=== PATIENT | female | born 1930 | race Caucasian/White ===

== ENCOUNTER 2016-11-24 17:24 | Inpatient (IN) | payer MEDICARE, OTHER ==
[~2016-11-24] VITALS: Ht 170.2 cm; Wt 74.4 kg
[2016-11-24] MEDS ORDERED: FUROSEMIDE20 MG PO (17:33)
[2016-11-24] MEDS ORDERED: LEVOTHYROXINE100 MC1 IV (17:33)
[2016-11-24] MEDS ORDERED: BAYER CHEWABLE81 MG PO (17:33)
[2016-11-24] MEDS ORDERED: MECLIZINE HCL25 MG PO (17:34)
[2016-11-24] MEDS ORDERED: PLAVIX75 MG PO (17:34)
[2016-11-24] MEDS ORDERED: CATAPRES0.1 MG PO (17:34)
[2016-11-24] MEDS ORDERED: ZOFRAN8 MG PO (17:35)
[2016-11-24] MEDS ORDERED: CARAFATE1 G PO (17:36)
[2016-11-24] MEDS ORDERED: XANAX0.5 MG PO (17:37)
[2016-11-24] MEDS ORDERED: ULTRAM50 MG PO (17:37)
[2016-11-24] MEDS ORDERED: VITAMIN B-1000 MCG/M SQ (17:39)
[2016-11-24 17:57] VITALS: BP 174/81; BMI 25.1
--- NOTE | 2016-11-24 18:04 | NUR ---
TO ROOM 2215 FROM OFFICE.PT C/ OF SHORTNESS OF BREATH WELL BACK AND CHEST PAIN 10/10 SCALE.SHE STATES SHE HAS BEEN HAVING THIS FOR A FEW DAYS.SATS 98% ON ROOM AIR.FALL PRECAUTIONS INITIATED.ASSESSMENT PER ADMIT PACK.
--- NOTE | 2016-11-24 19:00 | NUR ---
PATIENT SUPINE IN BED. HOB 30 DEGREES. PATIENT IS AWAKE AND ALERT WITH MOMENTS OF CONFUSION. RR EVEN AND UNLABORED. O2 @ 2L VIA NC. 0 S/S OF DISTRESS. STATES PAIN IS A 9/10 DUE TO A HEADACHE. IV TO LEFT HAND S/L WITH NO REDNESS OR SWELLING. ATTACHED BOX ALARM TO PATIENT PER FALL PRECAUTIONS. SRX2. BED LOW. CALL LIGHT WITHIN REACH.
[2016-11-24 20:13] LABS: BASOPHILS 0.4 % (0.0-2.0); EOSINOPHILS 7.8 % (0-7); HEMATOCRIT 37.9 % (36.0-48.0); HEMOGLOBIN 11.8 g/dL (12-16); IMMATURE GRANULOCYTES 0.2 % (0-5); MCH 28.8 pg (26.0-34.0); MCHC 31.1 g/dL (31.0-37.0); MCV 92.4 fL (80.0-100.0); MEAN PLATELET VOLUME 10.5 fL (7.4-10.4); MONOCYTES 7.6 % (2-11); RDW 16.9 % (11.5-14.5); WBC 5.3 10x3/uL (4.8-10.8)
[2016-11-24 20:24] LABS: PLATELET COUNT 207 10x3/uL (130-400)
[2016-11-24 20:35] LABS: ALBUMIN 3.5 g/dL (3.4-5.0); ANION GAP 12.5 mmol/L (8-16); CALCIUM 8.9 mg/dL (8.5-10.1); CARBON DIOXIDE 27.1 mmol/L (21.0-32.0); CREATININE - SERUM 0.9 mg/dL (0.6-1.3); POTASSIUM - SERUM 3.6 mmol/L (3.5-5.1)
[2016-11-24 21:00] VITALS: BP 175/92
[2016-11-25 01:00] VITALS: BP 166/90
[2016-11-25 05:40] LABS: BASOPHILS 0.4 % (0.0-2.0); EOSINOPHILS 6.4 % (0-7); HEMATOCRIT 36.3 % (36.0-48.0); HEMOGLOBIN 11.1 g/dL (12-16); LYMPHOCYTES 17.3 % (15-50); MCHC 30.6 g/dL (31.0-37.0); MCV 91.7 fL (80.0-100.0); MEAN PLATELET VOLUME 10.2 fL (7.4-10.4); MONOCYTES 6.9 % (2-11); PLATELET COUNT 212 10x3/uL (130-400); RBC 3.96 10x6/uL (4.00-5.40); RDW 16.5 % (11.5-14.5); WBC 4.7 10x3/uL (4.8-10.8)
[2016-11-25 06:01] LABS: ANION GAP 11.6 mmol/L (8-16); CALCIUM 8.8 mg/dL (8.5-10.1); CARBON DIOXIDE 26.6 mmol/L (21.0-32.0); CREATININE - SERUM 0.9 mg/dL (0.6-1.3); POTASSIUM - SERUM 3.2 mmol/L (3.5-5.1)
--- NOTE | 2016-11-25 07:45 | NUR ---
ASSESSMENT PER FLOW SHEET.PT WITHOUT DISTRESS.BRUISE NOTED TO RIGHT BUTTOCK,PT STATES THE BSC BMPED HER WHEN SHE SIT DOWN.SMALL BRUISES NOTED TO BILATERAL ARMS.FALL PREVENTION IN PLACE,DOOR OPEN TO MONITOR.
[2016-11-25 07:55] VITALS: BP 184/85
[2016-11-25 12:05] VITALS: BP 204/84
--- NOTE | 2016-11-25 12:15 | NUR ---
Patient Name: YOCASTA KAPLAN Admission Status: Elective Accout number: [id number] Admission Date: 11-24-2016 : 1931 Admission Diagnosis: Attending: MADDIE Current LOS: 1 Anticipated DC Date: 11-30-2016 Planned Disposition: Home Primary Insurance: MEDICARE A & B Discharge Planning Comments: CM MET WITH PATIENT REGARDING D/C NEEDS AND PLANS. PATIENT STATED SHE LIVES WITH HER SON (HERBERT) AND HE WILL DRIVE HER HOME AT DISCHARGE. PATIENT HAS 4 STEPS W/ RAILS TO ENTER HOME AND 2 STEPS/RAILS INSIDE. PATIENT STATED SHE IS INDEPENDENT WITH HER CARE AND HAS A WALKER, CANE, WHEELCHAIR, BS COMMODE, AND SHOWER CHAIR AT HOME. PATIENTS SON HELPS WITH HER MEDICATION. PATIENTS PCP IS DR. COLE AND HER PHARMACY IS [facility] [place]. PATIENT IS CURRENT WITH [facility]. CM WILL CONTINUE TO FOLLOW PATIENT WITH D/C NEEDS AND PLANS. PCP DR. COLE [facility] [phone] HERBERT KAPLAN (SON) [phone] French Instructor: Ronel Burch Is the patient Alert and Oriented? Yes 0 * How many steps to enter\exit or inside your home? 6 W/RAILS 0 * PCP DR. COLE 0 * Pharmacy [facility] IN [place] ([facility]) 0 * Preadmission Environment Home with Family 0 * ADLs Independent 0 * Equipment Bedside Commode Cane Shower Chair Walker Wheelchair 0 * List name and contact numbers for known caregivers / representatives who currently or will assist patient after discharge: HERBERT KAPLAN (SON) [phone] 0 * Community resources currently utilized Other 0 * Please name any agencies selected above. [facility] 0 * Additional services required to return to the preadmission environment? Yes 0 * Can the patient safely return to the preadmission environment? Yes 0 * Has this patient been hospitalized within the prior 30 days at any hospital? No 0 Grand Total: 0
--- NOTE | 2016-11-25 13:00 | NUR ---
RE CHECK BP 122/60
[2016-11-25 13:29] VITALS: Ht 170.2 cm; Wt 74.4 kg
--- NOTE | 2016-11-25 14:27 | NUR ---
MEDS ORDERED PER MAR FOR ANXIETY
--- NOTE | 2016-11-25 15:00 | NUR ---
CALL FROM FAMILY,PASSWORD CONFIRMED. UPDATE GIVEN
[2016-11-25 15:38] VITALS: BP 149/63
--- NOTE | 2016-11-25 19:00 | NUR ---
PATIENT SLEEPING ON LEFT SIDE. HOB 20 DEGREES. RR EVEN AND UNLABORED. 0 S/S OF DISTRESS. O2 OFF AT THIS TIME. IV TO LEFT HAND S/L WITH NO REDNESS OR SWELLING. BRAD ALARM ON. SRX2. BED LOW. DOOR OPEN.
--- NOTE | 2016-11-25 19:24 | NUR ---
REMAINS WITHOUT CHANGE,CONT PLAN OF CARE
[2016-11-25 20:00] VITALS: BP 152/70
--- NOTE | 2016-11-25 21:30 | NUR ---
ASSISTED PATIENT TO BSC AND BACK TO BED. ASSESSMENT COMPLETE. IV FLUSHED AND IS PATENT.
[2016-11-26] VITALS: BP 167/74
--- NOTE | 2016-11-26 01:00 | NUR ---
ULTRAM GIVEN FOR HEADACHE. PATIENT CONFUSED AND ASKING WHERE HER SON IS. ATIVAN GIVEN FOR ANXIETY. WILL CONTINUE TO MONITOR.
[2016-11-26 04:00] VITALS: BP 123/72
[2016-11-26 07:07] LABS: BASOPHILS 0.5 % (0.0-2.0); EOSINOPHILS 12.1 % (0-7); HEMATOCRIT 36.2 % (36.0-48.0); HEMOGLOBIN 10.9 g/dL (12-16); LYMPHOCYTES 19.3 % (15-50); MCH 27.7 pg (26.0-34.0); MCHC 30.1 g/dL (31.0-37.0); MCV 92.1 fL (80.0-100.0); MEAN PLATELET VOLUME 10.4 fL (7.4-10.4); MONOCYTES 7.9 % (2-11); NEUTROPHILS 60.2 % (40-80); PLATELET COUNT 207 10x3/uL (130-400); RBC 3.93 10x6/uL (4.00-5.40); RDW 16.5 % (11.5-14.5); WBC 4.3 10x3/uL (4.8-10.8)
[2016-11-26 07:29] LABS: ALBUMIN 3.1 g/dL (3.4-5.0); BILIRUBIN - TOTAL 1.1 mg/dL (0.2-1.3); CALCIUM 8.9 mg/dL (8.5-10.1); CARBON DIOXIDE 27.6 mmol/L (21.0-32.0); POTASSIUM - SERUM 3.6 mmol/L (3.5-5.1); PROTEIN - SERUM 6.6 g/dL (6.4-8.2)
[2016-11-26 07:56] VITALS: BP 174/93
[2016-11-26 12:02] VITALS: BP 140/67
[2016-11-26 15:31] VITALS: BP 140/71
--- NOTE | 2016-11-26 16:23 | EC ---
PATIENT:YOCASTA KAPLAN DATE OF SERVICE: 11/24/16 SEX: F MEDICAL RECORD: [id number] DATE OF : 32 LOCATION:D.[facility] AGE OF PATIENT: 86 ADMISSION DATE: 11/24/16 REFERRING PHYSICIAN: INTERPRETING PHYSICIAN: EMMA HAN MD ECHOCARDIOGRAM REPORT ECHO CHARGES 4 ECHO COMPLETE CLINICAL DIAGNOSIS: CHF/ELEVATED BNP ECHOCARDIOGRAPHIC MEASUREMENTS (adult normal given) AC root (d.<3.7cm) 3.4 LV Septum d (<1.2 cm> 1.4 Valve Excursion 1.8 LV Septum (systole) 1.8 Left Atria (s.<4.0cm> 5.3 LVPW d(<1.2cm) 1.4 RV (d.<2.3cm) 3.8 LVPW (sytole) 2.1 LV diastole(<5.6CM) 5.2 MV E-F(>70mm/sec) LV systole 3.4 LVOT Diameter 1.7 MV exc.(>10mm) Est.ejection fraction (50-75%) Pericardial Effusion N DOPPLER: LVIT A E 144.0 LA RVSP 95.3 LVOT 85.0 AOP1/2T Asc. Ao 121 RVOT 71.0 RA PA 93.0 AV Gradient Peak 5.9 AV Mean 3.3 AV Area 1.3 MV Gradient Peak 9.4 MV Mean 3.0 MV Area COMMENTS: Tax Adjuster: Paula VASQUEZOE Counseling Director:Paula Han TAPE# PACS DATE OF SERVICE: 11/25/2016 Echocardiogram FINDINGS: 1. Left ventricular chamber size is within normal limits. Left ventricular systolic function is moderately depressed. Overall, ejection fraction estimated at 30%. 2. Left atrium is enlarged at 5.3 cm. Right atrium and right ventricular chamber sizes are severely dilated. ECHOCARDIOGRAM REPORT [id number] YOCASTA KAPLAN 3. Valvular structures have normal structure and motion. 4. Doppler interrogation reveals mild to moderate aortic insufficiency, moderate mitral regurgitation, severe tricuspid regurgitation, no other valvular insufficiency or stenosis and pulmonary systolic pressure is markedly elevated estimated at 95 mmHg. 5. No evidence of pericardial effusion or left ventricular thrombus. TRANSINT:[id number] Voice Confirmation ID: [id number] DOCUMENT ID: [id number] EMMA HAN MD at 1623 CC: [id number] DICTATION DATE: 11/25/16 1602 SHIPPING HELPER: 11/26/16 0000 ADM IN [facility] [address] [id number]
--- NOTE | 2016-11-26 19:00 | NUR ---
PATIENT RESTING WITH EYES CLOSED SUPINE IN BED. HOB 30 DEGREES. RR EVEN AND UNLABORED. 0 S/S OF DISTRESS. IV TO LEFT HAND S/L WITH NO REDNESS OR SWELLING. TELEMETRY ON. BRAD MAT ON. SRX2. BED LOW. DOOR OPEN.
[2016-11-26 20:00] VITALS: BP 178/79
--- NOTE | 2016-11-26 20:30 | NUR ---
PATIENT EXTREMELY CONFUSED AND ANXIOUS. ASKING FOR HER SON. SPOKE TO SON ON THE PHONE AND HE ARRIVED. STATES THAT HIS MOTHER IS SUPPOSED TO HAVE HER XANAX TWICE A DAY BUT IT IS ONLY SCHEDULED DAILY. SPOKE WITH KELLI GARCIA AND CHANGED ORDER TO BID. GAVE XANAX AND ULTRAM FOR HEADACHE. ATTEMPTED TO PUT SCD'S ON PATIENT BUT SHE REFUSED.
[2016-11-27] VITALS: BP 151/67
--- NOTE | 2016-11-27 01:20 | NUR ---
PATIENT AWOKE VERY CONFUSED AGAIN. ASKING FOR SON, BUT HE ASKED THAT WE NOT CALL HIM IN THE MIDDLE OF THE NIGHT. GAVE ATIVAN PER ORDER. WILL CONTINUE TO MONITOR.
[2016-11-27 04:00] VITALS: BP 165/72
--- NOTE | 2016-11-27 04:53 | NUR ---
PATIENT ON BSC AND REFUSING TO GET OFF. DEMANDING HER XANAX. I EXPLAINED TO PATIENT MULTIPLE TIMES THAT IT WAS NOT TIME BUT SHE WAS BECOMING IRATE. STATED SHE WOULD GET BACK IN BED IF SHE COULD "HAVE HER PILLS." GAVE XANAX. PATIENT NOW CALM AND BACK IN BED.
[2016-11-27 06:34] LABS: BASOPHILS 0.5 % (0.0-2.0); EOSINOPHILS 12.8 % (0-7); HEMATOCRIT 35.1 % (36.0-48.0); HEMOGLOBIN 10.9 g/dL (12-16); IMMATURE GRANULOCYTES 0.2 % (0-5); MCH 28.5 pg (26.0-34.0); MCHC 31.1 g/dL (31.0-37.0); MCV 91.9 fL (80.0-100.0); MEAN PLATELET VOLUME 10.3 fL (7.4-10.4); MONOCYTES 8.5 % (2-11); PLATELET COUNT 203 10x3/uL (130-400); RBC 3.82 10x6/uL (4.00-5.40); RDW 16.9 % (11.5-14.5); WBC 4.4 10x3/uL (4.8-10.8)
[2016-11-27 06:56] LABS: ANION GAP 9.4 mmol/L (8-16); BILIRUBIN - TOTAL 0.8 mg/dL (0.2-1.3); CARBON DIOXIDE 29.2 mmol/L (21.0-32.0); POTASSIUM - SERUM 3.6 mmol/L (3.5-5.1); PROTEIN - SERUM 6.2 g/dL (6.4-8.2)
--- NOTE | 2016-11-27 07:25 | NUR ---
PATIENT RECEIVED ALERT IN BED. NO SIGNS OF DISTRESS NOTED. REQUESTING XANAX. EXPLAINED TO PATIENT THAT SHE WAS GIVEN XANAX AT 0435 AND THAT IT WAS TOO EARLY. SIDE RAILS UP X2. BED IN LOW POSITIN. CALL LIGHT IN REACH. BRAD ALARM ON.
[2016-11-27 08:09] VITALS: BP 191/88
--- NOTE | 2016-11-27 08:10 | NUR ---
SITTING UP ON SIDE OF BED ALERT. NO SIGNS OF DISTRESS NOTED. SCHEDULED MEDICATION ADMINISTERED. SIDE RAILS UP X2. BED IN LOW POSITION. CALL LIGHT IN REACH.
--- NOTE | 2016-11-27 11:07 | NUR ---
PATIENT ALERT IN BED. NO SIGNS OF DISTRESS NOTED. SIDE RAILS UP X2. BED IN LOW POSITION. CALL LIGHT IN REACH.
[2016-11-27 12:12] VITALS: BP 162/81
--- NOTE | 2016-11-27 13:55 | NUR ---
PATIENT IN RIGHT LATERAL POSITION RESTING WITH EYES CLOSED. RESPIRATIONS EVEN AND UNLABORED. SCDS ON BILATERALLY. SIDE RAILS UP X2. BED IN LOW POSITION. CALL LIGHT IN REACH.
--- NOTE | 2016-11-27 16:30 | NUR ---
PATIENT UP TO BSC ASSIST X1 THEN BACK TO BED. RESPOSITIONED FOR COMFORT. SIDE RAILS UP X2. BED IN LOW POSITION. CALL LIGHT IN REACH. BED ALARM ON.
[2016-11-27 16:45] VITALS: BP 169/81
--- NOTE | 2016-11-27 17:37 | NUR ---
PATIENT IN HIGH KAMINSKI POSITION EATING DINNER. TOLERATING WELL. SCHEDULED MEDICATION ADMINISTERED. SON AT BEDSIDE. SIDE RAILS UP X2. BED IN LOW POSITION. CALL LIGHT IN REACH. BRAD ALARM ON.
--- NOTE | 2016-11-27 19:00 | NUR ---
PATIENT SLEEPING ON RIGHT SIDE. HOB 20 DEGREES. RR EVEN AND UNLABORED. 0 S/S OF DISTRESS. IV TO LEFT HAND S/L WITH NO REDNESS OR SWELLING. TELEMETRY ON. BRAD ALARM ON. SCD'S IN ROOM BUT OFF. SRX2. BED LOW. DOOR OPEN.
[2016-11-27 20:30] VITALS: BP 155/72
[2016-11-28] VITALS (7 sets, daily range): BP systolic 131–186; BP diastolic 55–92
[2016-11-28 05:01] LABS: BASOPHILS 0.4 % (0.0-2.0); EOSINOPHILS 10.9 % (0-7); HEMATOCRIT 38.7 % (36.0-48.0); HEMOGLOBIN 11.9 g/dL (12-16); IMMATURE GRANULOCYTES 0.2 % (0-5); LYMPHOCYTES 16.2 % (15-50); MCH 28.5 pg (26.0-34.0); MCHC 30.7 g/dL (31.0-37.0); MCV 92.6 fL (80.0-100.0); MEAN PLATELET VOLUME 10.3 fL (7.4-10.4); MONOCYTES 9.9 % (2-11); NEUTROPHILS 62.4 % (40-80); PLATELET COUNT 209 10x3/uL (130-400); RBC 4.18 10x6/uL (4.00-5.40); WBC 5.1 10x3/uL (4.8-10.8)
[2016-11-28 05:31] LABS: ALBUMIN 3.2 g/dL (3.4-5.0); ANION GAP 10.8 mmol/L (8-16); BILIRUBIN - TOTAL 0.68 mg/dL (0.2-1.3); CALCIUM 9.6 mg/dL (8.5-10.1); CARBON DIOXIDE 27.2 mmol/L (21.0-32.0); PROTEIN - SERUM 7.1 g/dL (6.4-8.2)
--- NOTE | 2016-11-28 07:10 | NUR ---
PATIENT RECEIVED IN LOW KAMINSKI POSITION RESTING QUIETLY. RESPIRATIONS EVEN AND UNLABORED. SIDE RAILS UP X2. BED IN LOW POSITION. CALL LIGHT IN REACH. BRAD ALARM ON.
--- NOTE | 2016-11-28 08:38 | NUR ---
PATIENT REPOSITIONED IN BED. WELL TOLERATED. SCHEDULED MEDICATION ADMINISTERED. SIDE RAILS UP X2. BED IN LOW POSITION. CALL LIGHT IN REACH. BED ALARM ON.
--- NOTE | 2016-11-28 11:27 | NUR ---
PATIENT SITTING UP IN CHAIR AT BEDSIDE. NO SIGNS OF DISTRESS NOTED. SCHEDULED MEDICATION ADMINISTERED. BRAD ALARM ON. CALL LIGHT IN REACH.
--- NOTE | 2016-11-28 13:30 | NUR ---
PATIENT IN LOW KAMINSKI POSITION RESTING WITH EYES CLOSED. RESPIRATIONS EVEN AND UNLABORE. SIDE RAILS UP X2. BED IN LOW POSITION. CALL LIGHT IN REACH.
--- NOTE | 2016-11-28 15:00 | NUR ---
Rehab Note- Prescreen Order received. Attempted to interview the patient- very drowsy, lethargic, kept falling asleep while attempting to interview patient. Spoke to her concerning her sleepiness, state "don't know why I'M so sleepy, slept well last nite". When discussing possibility for IRF stay, stated we'll have to speak to my son about that, he makes those decisions. Attempted to call son Jerad Miller @ [phone] left voicemail for return call, & [phone] & unable to leave voicemail on this phone. Son, Jerad, returned call while I went back to speak with the patient. Explained IRF order & stay, stated "don't know what my mom told you but she lives @ [facility] & has for about a week & has some Dementia". Informed son that patient stated that she lived @ home with him & has a caregiver lady that helps her around the house. He stated that wasn't true. Asked him about her being so sleepy & lethargic, stated that had kind of become her norm because she's wanting to stay up all night & sleep all day. Stated that he thought from speaking with the nurse yesterday that she would be in the hospital at least a few more days. Noted that patient has been uncooperative with care per nursing staff. The patient is unable to tolerate & cooperate with the required 3hrs of therapy for IRF stay. Thank you for this referral! Myra Hunter RN Clinical Liaison, [facility]
--- NOTE | 2016-11-28 17:00 | NUR ---
ASSISTED UP TO RESTROOM THEN TO CHAIR AT BEDSIDE ASSIST X1. DENIES NEEDS. BRAD ALARM ON. CALL LIGHT IN REACH.
--- NOTE | 2016-11-28 19:24 | NUR ---
PT RECEIVED RESTING IN BED. NO SIGNS OF DISTRESS. NO COMPLAINTS OF PAIN. PT DENIES NEEDS AT THIS TIME. BED LOW, CALL LIGHT IN REACH, ALARM ON.
--- NOTE | 2016-11-28 21:10 | NUR ---
PT SLEEPING. NO SIGNS OF DISTRESS. RESPIRATIONS EVEN AND UNLABORED. BED LOW, CALL LIGHT IN REACH, SIDE RAIL UPX2, BRAD ON.
--- NOTE | 2016-11-28 22:36 | NUR ---
ASSISTED PT TO BATHROOM, MINIMAL ASSIST. PT USING WALKER. DENIES ANY OTHER NEEDS AT THIS TIME. WILL MONITOR.
--- NOTE | 2016-11-28 23:21 | NUR ---
PT SLEEPING. NO SIGNS OF DISTRESS. RBAD ON.
[2016-11-29] VITALS: BP 158/77
--- NOTE | 2016-11-29 01:59 | NUR ---
PT SLEEPING. NO SIGNS OF DISTRESS. BRAD ALARM ON.
--- NOTE | 2016-11-29 02:57 | NUR ---
RECIEVED PT LYING IN BED RESTING WITH EYES CLOSED, RESP WITH EASE, NO DISTRESS NOTED, SR'S UP X2, CL IN REACH, ALARM ON, WILL MONITOR
[2016-11-29 04:00] VITALS: BP 162/75
[2016-11-29 05:09] LABS: BASOPHILS 0.2 % (0.0-2.0); EOSINOPHILS 9.8 % (0-7); HEMATOCRIT 39.5 % (36.0-48.0); HEMOGLOBIN 12.2 g/dL (12-16); MCH 28.4 pg (26.0-34.0); MCHC 30.9 g/dL (31.0-37.0); MCV 91.9 fL (80.0-100.0); MEAN PLATELET VOLUME 10.4 fL (7.4-10.4); MONOCYTES 9.3 % (2-11); NEUTROPHILS 66.7 % (40-80); PLATELET COUNT 224 10x3/uL (130-400); RDW 17.1 % (11.5-14.5); WBC 4.7 10x3/uL (4.8-10.8)
--- NOTE | 2016-11-29 05:19 | NUR ---
MEDS GIVEN PER MAR, FREDDIE WELL, CL IN REACH, ALARM ON
[2016-11-29 05:29] LABS: ALBUMIN 3.3 g/dL (3.4-5.0); ANION GAP 12.3 mmol/L (8-16); BILIRUBIN - TOTAL 0.8 mg/dL (0.2-1.3); CALCIUM 9.8 mg/dL (8.5-10.1); CARBON DIOXIDE 27.2 mmol/L (21.0-32.0); CREATININE - SERUM 0.9 mg/dL (0.6-1.3); POTASSIUM - SERUM 3.5 mmol/L (3.5-5.1); PROTEIN - SERUM 7.2 g/dL (6.4-8.2)
--- NOTE | 2016-11-29 07:05 | NUR ---
PATIENT RECEIVED ALERT IN LOW KAMINSKI POSITION. RESPIRATIONS EVEN AND UNLABORED. SIDE RAILS UP X2. BED IN LOW POSITION. CALL LIGHT IN REACH. BRAD ALARM ON.
[2016-11-29 08:13] VITALS: BP 175/90
--- NOTE | 2016-11-29 08:13 | NUR ---
PATIENT ALERT IN BED. REPOSITIONED FOR COMFORT. BREAKFAST TRAY SET UP. SCHEDULED MEDICATION ADMINISTERED. SIDE RAILS UP X2. BED IN LOW POSITION. CALL LIGHT IN REACH. BED ALARM ON.
--- NOTE | 2016-11-29 11:40 | NUR ---
PATIENT ASSIST BACK TO BED FROM BSC. POSITIONED SELF FOR COMFORT. REFUSES SCDS AT THIS TIME. SIDE RAILS UP X2. BED IN LOW POSITION. CALL LIGHT IN REACH. BED ALARM ON
[2016-11-29 12:46] VITALS: BP 145/62
--- NOTE | 2016-11-29 14:45 | NUR ---
PATIENT SITTING UP IN CHAIR AT BEDSIDE. NO SIGNS OF DISTRESS NOTED. CALL LIGHT IN REACH. BRAD ALARM ON.
[2016-11-29 16:42] VITALS: BP 160/66
--- NOTE | 2016-11-29 17:15 | NUR ---
PATIENT SITTING UP IN CHAIR AT BEDSIDE EATING DINNER. BRAD ALARM ON. CALL LIGHT IN REACH.
--- NOTE | 2016-11-29 19:50 | NUR ---
PATIENT ATTEMPTING TO TRANSFER SELF TO BSC. MINIMAL ASSIST PROVIDED AND ASSISTED BACK TO BED. NO SIGNS OF DISTRESS NOTED AT THIS TIME. DENIES ANY NEEDS OR PAIN. BED LOW. CALL LIGHT IN REACH. BED ALARM ON.
[2016-11-29 21:00] VITALS: BP 128/67
[2016-11-30 01:00] VITALS: BP 161/69
--- NOTE | 2016-11-30 02:30 | NUR ---
PT IN BED REQUESTING WATER. SCD'S OFF AT THIS TIME. IV TO LEFT HAND PATENT AND SALINE LOC. SIDE RAILS ARE UP X 2. BED IS LOW. BRAD MAT IS ON. CALL LIGHT IS IN REACH.
[2016-11-30 05:00] VITALS: BP 172/72
[2016-11-30 05:04] LABS: BASOPHILS 0.4 % (0.0-2.0); EOSINOPHILS 8.5 % (0-7); HEMATOCRIT 38.1 % (36.0-48.0); HEMOGLOBIN 11.6 g/dL (12-16); IMMATURE GRANULOCYTES 0.2 % (0-5); LYMPHOCYTES 18.3 % (15-50); MCHC 30.4 g/dL (31.0-37.0); MCV 91.8 fL (80.0-100.0); MEAN PLATELET VOLUME 10.5 fL (7.4-10.4); MONOCYTES 7.5 % (2-11); NEUTROPHILS 65.1 % (40-80); PLATELET COUNT 220 10x3/uL (130-400); RBC 4.15 10x6/uL (4.00-5.40); RDW 17.1 % (11.5-14.5); WBC 5.1 10x3/uL (4.8-10.8)
[2016-11-30 05:31] LABS: ALBUMIN 3.2 g/dL (3.4-5.0); ANION GAP 12.4 mmol/L (8-16); BILIRUBIN - TOTAL 0.78 mg/dL (0.2-1.3); CALCIUM 9.6 mg/dL (8.5-10.1); CARBON DIOXIDE 27.3 mmol/L (21.0-32.0); CREATININE - SERUM 1.1 mg/dL (0.6-1.3); POTASSIUM - SERUM 3.7 mmol/L (3.5-5.1); PROTEIN - SERUM 6.6 g/dL (6.4-8.2)
--- NOTE | 2016-11-30 07:52 | NUR ---
SCHEDULED MEDICATIONS ADMINISTERED AT THIS TIME WELL PRN XANAX AND ULTRAM PER ORDER. ASSESSMENT PERFORMED PER FLOWSHEET. IV TO LEFT HAND PATENT. PT REMAINS CONSISTENT WITH INTERMITTENT CONFUSION TO PLACT, TIME AND SITUATION. BRAD MAT ALARM ON AND IN USE. SCD'S OFF PER PT. SRX2, BED IN LOWEST POSITION AND LOCKED. DOOR OPEN AND CALL LIGHT IN REACH. WILL CONTINUE WITH PLAN OF CARE.
[2016-11-30 08:15] VITALS: BP 176/78
--- NOTE | 2016-11-30 10:15 | NUR ---
EATING ICE CREAM AT THIS TIME. PT DENIES NEEDS. SELF POSITION FOR COMFORT. CALL LIGHT IN REACH AND BRAD MAT ALARM ON AND IN USE FOR FALL PRECAUTION. DOOR OPEN. WILL CONTINUE WITH PLAN OF CARE.
[2016-11-30 12:22] VITALS: BP 143/66
--- NOTE | 2016-11-30 13:30 | NUR ---
SLEEPING AT THIS TIME. RESPIRATIONS EVEN AND NON LABORED. CALL LIGHT IN REACH AND DOOR OPEN. WILL CONTINUE WITH PLAN OF CARE.
--- NOTE | 2016-11-30 16:03 | NUR ---
CM REASSESSMENT NOTE: PATIENT WAS DENIED IP REHAB AND SON CHOSE [facility] AND REFERRAL WAS SENT.
[2016-11-30 16:45] VITALS: BP 152/76
--- NOTE | 2016-11-30 19:20 | NUR ---
RECIVED SHIFT REPORT. PT IS LYING IN BED. PT IS ALERT AND ORIENTED BUT IS CONFUSED TO SITUATION. IV IS PATENT AND SALINE LOC AT THIS TIME. SCD'S OFF AT THIS TIME. PT DENIES ANY PAIN AT THIS TIME. PT IS AMBULATORY WITH ASSISTANCE BUT IS ABLE TO TURN SELF IN BED FOR COMFORT AND SKIN CARE. NO NEEDS ARE VERBALIZED AT THIS TIME. WILL CONTINUE TO MONITOR. SIDE RAILS ARE UP X 2. BED IS IN LOWEST POSITION. BRAD MAT IS ON FOR SAFETY. CALL LIGHT IS WITHIN REACH.
[2016-11-30 20:58] VITALS: BP 121/61
--- NOTE | 2016-11-30 21:15 | NUR ---
SHIFT ASSESSMENT COMPLETED. PT STATUS REMAINS UNCHANGED FROM PREVIOUS. PT ASSISTED TO BEDSIDE COMMODE AND BACK TO BED WITH MINIMAL ASSIST. NO FURTHER NEEDS AT THIS TIME. WILL MONITOR. SIDE RAILS X 2. BED LOW. BRAD ON. CALL LIGHT IN REACH.
--- NOTE | 2016-12-01 01:08 | NUR ---
PT C/O BEING NERVOUS AND REQUESTING PRN XANAX. ADMINISTERED PER ORDER. DENIES FURTHER NEEDS. WILL MONITOR. SIDE RAILS X 2. BED LOW. POSSEY ON. CALL LIGHT IN REACH.
[2016-12-01 01:48] VITALS: BP 159/60
[2016-12-01 04:41] VITALS: BP 135/64
--- NOTE | 2016-12-01 08:05 | NUR ---
AWAKE AND AELRT.ORIETNED X3. NO C/O AT THIS TIME. LUNGS ARE CLEAR BILATERALLY, REPORTS OCCASSIONAL DRY COUGH. SKIN IS INTACT WITHOUT REDNESS. SL TO LEFT HAND PATENT WTIHOUT REDNESS AT INSERTION SITE. DANE NEEDS.
--- NOTE | 2016-12-01 08:25 | NUR ---
REQUESTED AND GIVEN ONE ULTRAM PO FOR C/O HEADACHE LEVEL 10. WILL MONITOR.
[2016-12-01 09:10] VITALS: BP 174/85
--- NOTE | 2016-12-01 09:30 | NUR ---
REPORTS HEADACHE GONE AT THIS TIME. ATE ALMOST ALL OF BREAKFAST.
[2016-12-01 11:03] LABS: BASOPHILS 0.5 % (0.0-2.0); EOSINOPHILS 7.5 % (0-7); HEMATOCRIT 37.8 % (36.0-48.0); HEMOGLOBIN 11.7 g/dL (12-16); IMMATURE GRANULOCYTES 0.2 % (0-5); LYMPHOCYTES 14.2 % (15-50); MCH 28.3 pg (26.0-34.0); MCV 91.3 fL (80.0-100.0); MEAN PLATELET VOLUME 10.6 fL (7.4-10.4); MONOCYTES 7.1 % (2-11); NEUTROPHILS 70.5 % (40-80); PLATELET COUNT 222 10x3/uL (130-400); RBC 4.14 10x6/uL (4.00-5.40); RDW 17.2 % (11.5-14.5); WBC 5.5 10x3/uL (4.8-10.8)
[2016-12-01 11:22] LABS: ALBUMIN 3.2 g/dL (3.4-5.0); ANION GAP 11.4 mmol/L (8-16); BILIRUBIN - TOTAL 0.8 mg/dL (0.2-1.3); CALCIUM 9.4 mg/dL (8.5-10.1); CARBON DIOXIDE 27.2 mmol/L (21.0-32.0); POTASSIUM - SERUM 3.6 mmol/L (3.5-5.1)
[2016-12-01] MEDS ORDERED: ZOCOR20 MG PO (11:38)
[2016-12-01] MEDS ORDERED: COREG12.5 MG PO (11:38)
[2016-12-01] MEDS ORDERED: VESICARE5 MG PO (11:40)
--- NOTE | 2016-12-01 12:36 | NUR ---
CM REASSESSMENT NOTE: PATIENT WILL DISCHARGE BY FACILITY VAN TODAY TO A SKILLED BED AT [facility].
[2016-12-01 13:06] VITALS: BP 138/63
--- NOTE | 2016-12-01 17:00 | NUR ---
REPORT CALLED TO JOHANA HARRIS LPN AT [facility]. ALL QUESSTIONS ANSWERED. NEEDED PRESCRIPITIONS SENT WITH PATIENT. SL TO LEFT HAND D/C WITH CATHETER INTACT.
--- NOTE | 2016-12-01 18:00 | NUR ---
SITTING UP ON SIDE OF BED EATING SUPPER. ASSISTED TO DRESS PER STAFF. VOIDED 300cc CLEAR YELLOW URINE. SKIN CARE PER SELF. DISCHARGED TO [facility] VIA THEIR TRANSPORTATION.
== END 2016-12-01 18:10 | DRG 293 ==
LOC: D.MS 17:24
PROVIDERS: Family Medicine; ADMIT Family Medicine Adult Medicine
DX: I11.0 Hypertensive heart disease with heart failure (principal); I50.9 Heart failure, unspecified; I48.91 Unspecified atrial fibrillation; E78.5 Hyperlipidemia, unspecified; Z95.0 Presence of cardiac pacemaker

== ENCOUNTER → 2016-12-04 14:39 | Outpatient (CLI) | payer MEDICARE, OTHER ==
[2016-11-25 13:29] VITALS: BMI 25.0
[~2016-12-04 14:39] MED LIST: BAYER CHEWABLE81 MG PO; CARAFATE1 G PO; CATAPRES0.1 MG PO; COREG12.5 MG PO; FUROSEMIDE20 MG PO; LEVOTHYROXINE100 MC1 IV; MECLIZINE HCL25 MG PO; PLAVIX75 MG PO; ULTRAM50 MG PO; VESICARE5 MG PO; VITAMIN B-1000 MCG/M SQ; XANAX0.5 MG PO; ZOCOR20 MG PO; ZOFRAN8 MG PO
== END | disposition home or self-care (01) ==
LOC: D.RAD 14:39
DX: R05 Cough (principal)

== ENCOUNTER 2017-04-15 10:21 | Observation (INO) | payer MEDICARE, OTHER ==
[~2017-04-15] VITALS: Ht 170.2 cm; Wt 70.3 kg
--- NOTE | ~2017-04-15 | OP ---
PATIENT NAME: YOCASTA KAPLAN MEDICAL RECORD: [id number] :31 LOCATION:D.[facility] D.2118 ADMISSION DATE:04/15/17 SURGEON: CHERYLE GALLEGOS M.D. DATE OF OPERATION: 04/16/2017 Catheterization Report REFERRING PHYSICIAN: Kush Cotto MD. PROCEDURES PERFORMED: 1. Selective coronary angiography. 2. Left heart catheterization with ventriculogram. INDICATION: An 86-year-old woman, who presents with unstable angina. EQUIPMENT USED: A 5-Algerian JL4, Rudy right, pigtail catheter. TECHNIQUE: A 5-Algerian sheath was inserted in retrograde fashion in the right common femoral artery. Next, selective coronary angiography was performed in standard 5-Algerian JL4 and Rudy right. Left heart catheterization was performed using pigtail catheter. CORONARY ANATOMY: 1. Left main: Left main trunk is moderate in caliber. It gives rise to the LAD and circumflex. There is no obstruction. 2. LAD: This is a moderate caliber vessel extending to the apex. It is a smooth-walled vessel and angiographically normal. 3. Circumflex: This vessel is moderate in caliber. It provides the lateral branch in mid segment. The circumflex and lateral branch are smooth-walled and angiographically normal. 4. Right coronary: This vessel is moderate in caliber and dominant. It provides the PDA and distal segment. This vessel is smooth-walled and angiographically normal. 5. Left ventricle: Left ventricle is mildly dilated. There is global hypokinesis noted. There is moderate LV dysfunction noted. Estimated ejection fraction in the order of 35% to 40%. IMPRESSION: 1. Normal coronary arteries. 2. Moderate left ventricular dysfunction with ejection fraction of 35% to 40% consistent cardiomyopathy. PLAN: At this point, we will continue with medical management. TRANSINT:[id number] Voice Confirmation ID: [id number] DOCUMENT ID: [id number] CHERYLE GALLEGOS M.D. CC: [id number] DICTATION DATE: 04/16/17 1433 DENTAL SERVICE TECHNICIAN: 04/17/17 0225 DIS IN 04/16/17 [facility] [address] [id number]
--- NOTE | ~2017-04-15 | HEMODYNAMI ---
PATIENT:YOCASTA KAPLAN MEDICAL RECORD: [id number] : 32 [facility] [id number] ADMISSION DATE: 04/15/17 Generatedon:04/16/201714:34 Patient name: YOCASTA KAPLAN Patient #: [id number] SSN: : Date of study: 04/16/2017 Page: Of Hemodynamic Procedure Report Patient Data Patient Demographics Procedure consent was obtained First Name: YOCASTA Gender: Female Last Name: KAPLAN : 1930 Patient #: [id number] Age: 86 year(s) Race: Unknown Additional ID: [id number] Contact details Address: [address] [place] [address] State: [place] City: [place] Zip code: [address] Past Medical History Allergies Allergen Reaction Date Comments Reported Other allergy 04/16/2017 GABAPENTIN,PCN, NITROFURANTOIN, METAXALONE, CODEINE, CILOSTAZOL, WALTER INHIBITORS Admission Admission Data Admission Date: 04/15/2017 Admission Time: 14:32 Room #: D.2118 Lab Results Lab Result Date: 04/16/2017 Lab Result Time: 0:00 Biochemistry Name Units Result Min Max BUN mg/dl 27 --(----)-* 7 18 Creatinine mg/dl 1.1 --(--*-)-- 0.6 1.3 CBC Name Units Result Min Max Hemoglobin g/dl 10.6 *-(----)-- 13.5 17.5 Procedure Procedure Types Cath Procedure Diagnostic Procedure LHC LHC w/Coronaries Miscellaneous Procedures Moderate Sedation up to 30 minutes Procedure Description Procedure Date Procedure Date: 04/16/2017 Procedure Start Time: 14:18 Procedure End Time: 14:31 Procedure Staff Name Function Niranjan Calloway MD Performing Physician Kasey Nugent RN Nurse Nadeem Adair RT Monitor Corky Minaya RT Scrub Issa Aguila RN Nurse James Contreras RT Aquarist Procedure Data Cath Procedure Fluoroscopy Diagnostic fluoroscopy Total fluoroscopy Time: 1.6 time: 1.6 min min Diagnostic fluoroscopy Total fluoroscopy dose: 352 dose: 352 mGy mGy Contrast Material Contrast Material Type Amount (ml) Isovue 300 54 Entry Location Entry Primary Successful Side Size Upsize Upsize Entry Closure Succes sful Closure Location (Fr) 1 (Fr) 2 (Fr) Remarks Device Remarks Femoral Right 5 Fr Exoseal artery Diagnostic catheters Device Type Used For End Catheter Placement Cordis 5Fr JL 4.0 Left Coronary Catheter (MP) Angiography Cordis 5Fr 3DRC Catheter Right Coronary (MP) Angiography Cordis 5Fr Pigtail LV Angiography Catheter (MP) Procedure Complications No complications Procedure Medications Medication Administration Route Dosage Oxygen NC 2 l/min Heparin Flush Bag added to field 2 bags (1000units/500ml NS) Lidocaine 2% added to field 20 Versed I.V. 0.5 mg Fentanyl I.V. 25 mcg Versed I.V. 0.5 mg Fentanyl I.V. 25 mcg Versed I.V. 0.5 mg Fentanyl I.V. 25 mcg Versed I.V. 0.5 mg Fentanyl I.V. 25 mcg Hemodynamics Rest HGB: 10.6 (g/dl) Heart Rate: 33 (bpm) Pressure Samples Time Site Value (mmHg) Purpose Heart Use Rate(bpm) 14:26 LV 88/8,15 EDP 79 14:27 AO 85/36(52) Pullback 74 14:27 LV 81/8,16 Pullback 74 Gradients Valve Time Site 1 Site 2 Mean SEP/DFP Peak To Heart Use (mmHg) (sec/min) Peak Rate (mmHg) (bpm) Aortic 14:27 LV AO 0 13 0 74 81/8,16 85/36(52) Calculations Valve P-P Mean Valve Index Valve Source Name Gradient Area Flow (cm2) Aortic 0 0 0 0 Snapshots Pre Cath Intra NCS Post Cath Vital Signs Time Heart Resp SPO2 NIBP (mmHg) Rhythm Pain Sedation Rate (ipm) (%) Status Level (bpm) 14:01:03 71 13 100 152/74(118) Paced 0 (11) 10(A) , No pain 14:05:24 74 18 100 134/64(108) Paced 0 (11) 10(A) , No pain 14:09:40 75 21 100 133/65(113) Paced 0 (11) 10(A) , No pain 14:13:58 75 16 99 122/63(88) Paced 0 (11) 10(A) , No pain 14:18:14 74 16 98 115/55(83) Paced 0 (11) 10(A) , No pain 14:22:28 71 18 95 102/58(62) Paced 0 (11) 9(A) , No pain 14:26:33 77 17 96 103/50(62) Paced 0 (11) 9(A) , No pain 14:30:44 70 16 96 101/54(77) Paced 0 (11) 9(A) , No pain Medications Time Medication Route Dose Verified Delivered Reason Notes Effec tiveness by by 14:06:41 Oxygen NC 2 Niranjan Kasey Per l/min Brodie Nugent RN physician 14:06:49 Heparin Flush added 2 Niranjan Niranjan used for Bag to bags Brodie Calloway MD procedure (1000units/500ml field NS) 14:06:55 Lidocaine 2% added 20ml Niranjan Niranjan used for to vial Brodie Calloway MD procedure field 14:16:36 Versed I.V. 0.5 Niranjan Kasey for mg Brodie Nugent RN sedation 14:16:42 Fentanyl I.V. 25 Niranjan Kasey for mcg Brodie Nugent RN sedation 14:18:36 Versed I.V. 0.5 Niranjan Kasey for mg Brodie Nugent RN sedation 14:18:38 Fentanyl I.V. 25 Niranjan Kasey for mcg Brodie Nugent RN sedation 14:21:12 Versed I.V. 0.5 Niranjan Kasey for mg Brodie Nugent RN sedation 14:21:14 Fentanyl I.V. 25 Niranjan Kasey for mcg Brodie Nugent RN sedation 14:23:00 Versed I.V. 0.5 Niranjan Kasey for mg Brodie Nugent RN sedation 14:23:07 Fentanyl I.V. 25 Niranjan Kasey for mcg Brodie Nugent RN sedation Procedure Log Time Note 13:25:35 James Contreras RT(R) (CV) sent for patient. Start room use. 13:43:44 Time tracking: Regular hours 13:43:50 Plan of Care:Hemodynamics will remain stable., Cardiac rhythm will remain stable., Comfort level will be maintained., Respiratory function will remain adequate., Patient/ family verbilizes understanding of procedure., Procedure tolerated without complication., Recovers from procedure without complications.. 13:45:22 Patient received from PCU to CCL 2 Alert and oriented. Tansferred to table in Supine position. 13:45:24 Warm blankets applied, and trevor hugger turned on for patient comfort. 13:45:24 Correct patient and procedure confirmed by team. 13:45:25 Signed procedure consent form obtained from patient. 13:45:25 ECG and BP/O2 sat monitors applied to patient. 13:52:47 IV left forearm D/C'd due to infiltration. 13:53:09 IV started by Issa Aguila RN inleft forearm with a 22 gauge IV catheter with 0.9% NaCl at KVO. 13:53:17 22g IV Catheter opened to sterile field. 13:59:57 Vital chart was started 13:59:58 Baseline sample Acquired. 14:00:00 Rhythm: sinus rhythm 14:00:01 Full Disclosure recording started 14:00:40 20 g. Iv catheter removed from rt forearm due to infiltration. cath was intact. Nurse Socorro informed of infiltration baseball size. 14:06:28 H&P Date Dictated: 04/15/2017 Within 30 days and on chart., H&P Addendum completed by physician on day of procedure. (MUST COMPLETE FOR ALL OUTPATIENTS). 14:06:29 Pre-procedure instructions explained to patient. 14:06:29 Pre-op teaching completed and patient verbalized understanding. 14:06:38 Family unavailable. 14:06:39 Patient NPO since Midnight. 14:06:41 Oxygen 2 l/min NC was administered by Kasey Nugent RN; Per physician; 14:06:49 Heparin Flush Bag (1000units/500ml NS) 2 bags added to field was administered by Niranjan Calloway MD; used for procedure; 14:06:55 Lidocaine 2% 20ml vial added to field was administered by Niranjan Calloway MD; used for procedure; 14:07:48 Patient allergic to Other allergyGABAPENTIN,PCN, NITROFURANTOIN, METAXALONE, CODEINE, CILOSTAZOL, WALTER INHIBITORS 14:07:56 Is the patient allergic to Iodine/contrast media? No. 14:07:58 Is patient on blood thinner?Yes 14:08:01 ACC The patient was administered the following blood thiners within the last 24 hours: ACCPlavix 14:08:05 Patient diabetic? No. 14:08:07 If diabetic: On Metformin? No 14:08:18 ----Pre-sedation anethsthesia assessment.---- 14:08:21 Previous problem with sedation/anesthesia? No ? 14:09:02 Snore? No 14:09:04 Sleep apnea? No 14:09:05 Deviated septum? No 14:09:06 Opens mouth fully? Yes 14:09:07 Sticks out tongue? Yes 14:09:09 Airway obstruction? No ? 14:09:16 Dentures? Yes PARTIAL IN TIGHT 14::19 Pre procedure: right dorsailis pedis pulse 1+ Palpable, but thready & weak; easily obliterated 14:09:50 Lab Result : BUN 27 mg/dl 14:09:50 Lab Result : Creatinine 1.1 mg/dl 14:09:50 Lab Result : Hemoglobin 10.6 g/dl 14:09:53 Lab results completed and on chart. 14:09:55 Right groin area was prepped with chlora-prep and draped in sterile fashion 14:09:56 Alarms reviewed by R. N. 14:09:57 Sharps counted by scrub and verified by R.N. 14:09:58 --------ALL STOP TIME OUT------ 14::58 Final Timeout: patient, procedure, and site verified with staff and physician. All members of the team are in agreement. 14:10:00 Right groin site verified by team. 14:10:05 Physical assessment completed. ASA score P 2 - A patient with mild systemic disease as per Niranjan Calloway MD. 14:10:20 Sedation plan: IV Moderate Sedation Versed, Fentanyl 14:16:36 Versed 0.5 mg I.V. was administered by Kasey Nugent RN; for sedation; 14:16:42 Fentanyl 25 mcg I.V. was administered by Kasey Nugent RN; for sedation; 14:18:18 Use device set Femoral Dx 14:18:19 Acist Syringe opened to sterile field. 14:18:19 Bag Decanter opened to sterile field. 14:18:19 Medline Cath Pack opened to sterile field. 14:18:20 Terumo 5Fr Kendleton Sheath opened to sterile field. 14:18:20 St Adama 260cm J .035 wire opened to sterile field. 14:18:22 Acist Hand Control opened to sterile field. 14:18: Acist Manifold opened to sterile field. 14:18: Diagnostic Infinity 5Fr Multipack catheter opened to sterile field. 14:18: Tegaderm 4 x 4 opened to sterile field. 14:18:29 Procedure started. :18:36 Versed 0.5 mg I.V. was administered by Kasey Nugent RN; for sedation; 14:18:38 Fentanyl 25 mcg I.V. was administered by Kasey Nugent RN; for sedation; 14:18:51 Local anesthetic to right femoral artery with Lidocaine 2% by Niranjan Calloway MD.INITIAL ACCESS ONLY 14:18:59 A 5 Fr sheath was inserted into the Right Femoral artery 14:20:02 Zero performed for pressure channel P1 14:21:12 Versed 0.5 mg I.V. was administered by Kasey Nugent RN; for sedation; 14:21:14 Fentanyl 25 mcg I.V. was administered by Kasey Nugent RN; for sedation; 14:22:14 A Cordis 5Fr JL 4.0 Catheter (MP) was advanced over the wire and used for Left Coronary Angiography. 14:22:16 LCA angiography performed. 14:23:00 Versed 0.5 mg I.V. was administered by Kasey Nugent RN; for sedation; 14:23:07 Fentanyl 25 mcg I.V. was administered by Kasey Nugent RN; for sedation; 14::29 Catheter removed. 14:24:30 A Cordis 5Fr 3DRC Catheter (MP) was advanced over the wire and used for Right Coronary Angiography. 14:24:33 RCA angiography performed. 14:25:12 Catheter removed. 14::38 A Cordis 5Fr Pigtail Catheter (MP) was advanced over the wire and used for LV Angiography. 14::41 LV angiography performed. 14::32 LV gram done using EDWARDS 14::33 LV hemodynamics recorded. ::36 Injector settings: Ml/sec: 10, Volume: 20, 14:26:47 EF : 40 % 14:27:02 Catheter removed. 14:27:34 Contrast amount:Isovue 300 54ml. 14:27:42 Sheath removed intact; hemostasis achieved with Exoseal to the Right Femoral artery. 14:27:43 Procedure ended.(Physican Out) 14:27:58 Fluoroscopy time 01.60 minutes. 14:28:16 Fluoroscopy dose: 352 mGy 14:28:16 Flurop Dose total: 352 14:28:18 Sharps counted by scrub and verified by R.N. 14:28:18 Insertion/operative site no bleeding no hematoma. 14:28:21 Post-op/insertion site Right Femoral artery dressed using a 4 x 4 and Tegaderm. 14:28:23 Post right femoral artery:stable 14:28:26 Post Procedure Pulses reassessed and unchanged 14:28:29 Post procedure rhythm: sinus rhythm 14:28:32 Post procedure instruction explained to patient.Patient verbalizes understanding. 14:28:50 Procedure type changed to Cath procedure, Diagnostic procedure, LHC, LHC w/Coronaries, Miscellaneous Procedures, Moderate Sedation up to 30 minutes 14:29:25 Cordis 5Fr Exoseal opened to sterile field. 14:30:03 Procedure and supply charges have been captured, reviewed, submitted and are correct. 14:30:33 Procedure Complication : No complications 14:31:44 Vital chart was stopped 14:31:45 See physician's report for complete and final results. 14:31:46 Report given to PCU. 14:31:50 Patient transfered to PCU with Bed. 14:31:52 Procedure ended. 14:31:52 Full Disclosure recording stopped 14:31:54 End room use (Document Last) Device Usage Item Name Manufacture Quantity Catalog Hospital Part Current Minimal L ot# / Number Charge Number Stock Stock Serial# Code 22g IV B. Burleson 1 [id number] 385455 [id number] 5 Catheter Acist Acist 1 72771 618567 313937 712418 20 Syringe Medical Systems Inc Bag Microtek 1 2002S 606921 03623 293986 5 Decanter Medical Inc. Medline Cardinal 1 [id number] 772966 51245 223498 5 Cath Pack Health Terumo 5Fr Terumo 1 [id number] 477288 158508 574814 [address] Ad[address] St Adama 1 919726 562686 882800 486200 30 260cm J .035 wire Acist Hand Acist 1 56727 236277 179344 254064 5 Control Medical Systems Inc Acist Acist 1 62620 740152 721780 518439 5 Manifold Medical Systems Inc Diagnostic Cardinal 1 [id number] 049076 70902 992529 30 Sakhr Softwareity Health 5Fr Multipack catheter Tegaderm 4 3M 1 1626W 444655 245631 243767 5 x 4 Cordis 5Fr Cardinal 1 261047 5 JL 4.0 Health Catheter (MP) Cordis 5Fr Cardinal 1 877259 5 3DRC Health Catheter (MP) Cordis 5Fr Cardinal 1 698705 5 Pigtail Health Catheter (MP) Cordis 5Fr Cardinal 1 EX500 258550 939113 049542 10 vChatter Signature Audit [place] Stage Time Signature Unsigned Intra-Procedure 04/16/2017 Nadeem Adair 2:34:30 PM RT(R) Signatures Monitor : Nadeem Adair RT Signature : Date : Time : [id number] [place] [address]
[2017-04-15 11:18] LABS: BASOPHILS 0.1 % (0-2); EOSINOPHILS 0.1 % (0-7); HEMATOCRIT 35.9 % (36.0-48.0); HEMOGLOBIN 11.4 g/dL (12-16); IMMATURE GRANULOCYTES 0.3 % (0-5); LYMPHOCYTES 7.3 % (15-50); MCH 29.2 pg (26.0-34.0); MCHC 31.8 g/dL (31.0-37.0); MCV 92.1 fL (80.0-100.0); MEAN PLATELET VOLUME 10.2 fL (7.4-10.4); MONOCYTES 7.9 % (2-11); NEUTROPHILS 84.3 % (40-80); RDW 18.4 % (11.5-14.5); WBC 9.2 10x3/uL (4.8-10.8)
[2017-04-15 11:21] LABS: PLATELET COUNT 147 10x3/uL (130-400)
[2017-04-15 11:36] LABS: ALBUMIN 3.4 g/dL (3.4-5.0); ALKALINE PHOSPHATASE 153 U/L (46-116); ALT (SGPT) 18 U/L (10-68); CALC OSMOLALITY 285 mosm/kg (275-300); CALCIUM 9.4 mg/dL (8.5-10.1); CARBON DIOXIDE 29.5 mmol/L (21.0-32.0); CHLORIDE - SERUM 104 mmol/L (98-107); CREATININE - SERUM 1.1 mg/dL (0.6-1.3); GLUCOSE 128 mg/dL (74-106); POTASSIUM - SERUM 3.3 mmol/L (3.5-5.1); PROTEIN - SERUM 7.9 g/dL (6.4-8.2); SODIUM 141 mmol/L (136-145); UREA NITROGEN 22 mg/dL (7-18); eGFR NON AFRICAN AMERICAN 50 mL/min (90-120)
[2017-04-15 11:47] LABS: CHOL - HDL RATIO 2.1 ratio (2.3-4.1); CHOLESTEROL, TOTAL 119 mg/dL (0-200); CKMB 0.4 U/L (0.0-3.6); CREATINE KINASE 53 UL (21-215); HDL CHOLESTEROL 56 mg/dL (32-96); LDL CHOLESTEROL 55 mg/dL (0-100); TRIGLYCERIDE 43 mg/dL (30-200); TROPONIN-I 0.022 ng/mL (0.000-0.060)
[2017-04-15] MEDS ORDERED: LIPITOR20 MG PO (15:33)
[2017-04-15] MEDS ORDERED: CATAPRES0.1 MG PO (15:35)
[2017-04-15] MEDS ORDERED: LISINOPRIL10 MG PO (15:37)
[2017-04-15] MEDS ORDERED: LASIX40 MG PO (15:37)
[2017-04-15] MEDS ORDERED: K-TAB10 MEQ PO (15:39)
[2017-04-15] MEDS ORDERED: DITROPAN X10 MG/BOTT PO (15:39)
[2017-04-15] MEDS ORDERED: POTASSIUM20 MEQ/11 PO (15:40)
[2017-04-15] MEDS ORDERED: OMEPRAZOLE20 M1 PO (15:42)
[2017-04-15] MEDS ORDERED: SYNTHROID88 MCG PO (15:42)
[2017-04-15] MEDS ORDERED: ACETAMINOPHEN325 MG PO (15:44)
--- NOTE | 2017-04-15 15:45 | NUR ---
TRANSFER FROM ER BY STRETCHER. OREINTED TO ROOM. CALL LIGHT IN REACH. WILL CONT. PLAN OF CARE.
[2017-04-15 16:04] VITALS: BP 131/50; BMI 24.3
--- NOTE | 2017-04-15 16:32 | NUR ---
SCDS ON BILAT.
[2017-04-16] VITALS: BP 131/69
[2017-04-16 04:00] VITALS: BP 113/51
[2017-04-16 04:57] LABS: BASOPHILS 0.3 % (0-2); EOSINOPHILS 0.3 % (0-7); HEMATOCRIT 33.5 % (36.0-48.0); HEMOGLOBIN 10.6 g/dL (12-16); IMMATURE GRANULOCYTES 0.3 % (0-5); LYMPHOCYTES 11.4 % (15-50); MCH 28.8 pg (26.0-34.0); MCHC 31.6 g/dL (31.0-37.0); MEAN PLATELET VOLUME 10.4 fL (7.4-10.4); MONOCYTES 10.4 % (2-11); NEUTROPHILS 77.3 % (40-80); PLATELET COUNT 141 10x3/uL (130-400); RBC 3.68 10x6/uL (4.00-5.40); RDW 18.7 % (11.5-14.5); WBC 7.5 10x3/uL (4.8-10.8)
[2017-04-16 05:18] LABS: CALC OSMOLALITY 283 mosm/kg (275-300); CALCIUM 8.8 mg/dL (8.5-10.1); CARBON DIOXIDE 28.9 mmol/L (21.0-32.0); CHLORIDE - SERUM 104 mmol/L (98-107); CREATININE - SERUM 1.1 mg/dL (0.6-1.3); GLUCOSE 117 mg/dL (74-106); POTASSIUM - SERUM 3.2 mmol/L (3.5-5.1); SODIUM 139 mmol/L (136-145); UREA NITROGEN 27 mg/dL (7-18); eGFR NON AFRICAN AMERICAN 50 mL/min (90-120)
[2017-04-16 05:19] LABS: TROPONIN-I < 0.017 ng/mL (0.000-0.060)
[2017-04-16 08:12] VITALS: BP 109/48
[2017-04-16 12:14] VITALS: BP 103/43
--- NOTE | 2017-04-16 13:40 | NUR ---
PRE-OPS GIVEN. TO DIRECTOR OF DEMENTIA OPERATIONS BY BED.
[2017-04-16 14:28] VITALS: Ht 170.2 cm; Wt 70.3 kg
--- NOTE | 2017-04-16 14:59 | NUR ---
BACK FROM [facility] TURNER AND FORMER. VS WNL. RIGHT GROIN STABEL WITHOUT BLEEDING OR HEMATOMA NOTED. WILL MONITOR.
[2017-04-16] MEDS ORDERED: ALDACTONE25 MG PO (15:27)
[2017-04-16 15:43] VITALS: BP 112/53
--- NOTE | 2017-04-16 17:06 | NUR ---
BED REST UP. GROIN STABLE.
--- NOTE | 2017-04-16 17:45 | NUR ---
Patient Name: YOCASTA KAPLAN Admission Status: ER Accout number: [id number] Admission Date: 04-15-2017 : 1930 Admission Diagnosis: Attending: FANI Current LOS: 1 Anticipated DC Date: 04-16-2017 Planned Disposition: Home Primary Insurance: MEDICARE A & B PLANNED EXTERNAL PROVIDER: [facility] Discharge Planning Comments: * Is the patient Alert and Oriented? Yes 0 * How many steps to enter\exit or inside your home? NONE 0 * PCP DR. MOHR 0 * Preadmission Environment Assisted Living 0 * Facility Name [facility] 0 * ADLs Partial Dependent 0 * Partial ADLs (Assistance needed) Medication Management 0 * Equipment None 0 * Other Equipment NO MEDICAL EQUIPMENT PROVIDER PREFERENCE 0 * List name and contact numbers for known caregivers / representatives who currently or will assist patient after discharge: BROOKE KAPLAN, SON, 0 * Community resources currently utilized None 0 * Please name any agencies selected above. NONE 0 * Additional services required to return to the preadmission environment? No 0 * Can the patient safely return to the preadmission environment? Yes 0 * Has this patient been hospitalized within the prior 30 days at any hospital? No 0 CM RECEIVED DISCHARGE ORDER, BEDSIDE NURSE REQUESTED ASSISTANCE IN DISCHARGE PLANNING. CM MET WITH PT WHO REPORTS LIVING AT [facility] IN ASSISTED LIVING, PT'S SON, BROOKE ASSISTS HER WITH TRANSPORTATION AND DECISIONS. PT REPORTS FEELING SAFE AT [facility] AND WANTS BROOKE TO GET SOME CLOTHES AND COME TO GET HER TONIGHT TO GO HOME. CM CALLED [facility], , SPOKE TO VISHNU WHO ASKED THAT NURSE REPORT BE CALLED TO JAYSON AT [phone]; CM FAXED DISCHARGE INFORMATION TO [facility] AT [phone]. CM CALLED BROOKE AT [phone], WHO WILL EKG/ECG TECHNICIAN PT IN ONE AND A HALF HOURS IF NEEDED. CM SPOKE TO BEDSIDE NURSE WHO REPORTS PT READY FOR DISCHARGE. NURSE REPORT TO BE CALLED TO [facility] NURSE JAYSON, ; CALL BROOKE, PT'S SON AT [phone] AND TELL HIM THAT PT IS READY FOR HIM TO EKG/ECG TECHNICIAN FOR TRANSPORT TO [facility]. Asset Availability Leader: You Woo
--- NOTE | 2017-04-16 19:04 | NUR ---
PT OUT TO PERSONAL AUTO VIA WC ACCOMAPNIED BY SON. ALL BELONGINGS LEAVE ROOM WITH PT AND A COPY OF DISCHARGE TEACHING GIVEN.
--- NOTE | 2017-04-17 10:39 | CN ---
PATIENT NAME:YOCASTA KAPLAN MEDICAL RECORD: [id number] : 32 LOCATION:[place] D.2118 ADMIT DATE: 04/15/17 ACCOUNT: [id number] CONSULTING PHYSICIAN: JUDD GRIFFITHS MD REFERRING PHYSICIAN: ARGENTINA MOHR MD DATE OF CONSULTATION: 04/15/2017 HISTORY OF PRESENT ILLNESS: An 86-year-old female with a history of permanent pacemaker placement. She has a history of cardiomyopathy, last visit in November showed EF 30%. Severe pulmonary hypertension, PA pressure is above 90. Reports some chest pain, was found at [facility] to have O2 sats decreased. Cardiac enzymes are negative. The patient is a poor historian, does have a history of dementia. She is DNR. We are asked to see her concerning her cardiovascular status. PAST MEDICAL HISTORY: Include: 1. History of hypertension. 2. Dementia. 3. Cardiomyopathy. 4. Gastroesophageal reflux disease. 5. Hypothyroidism, on replacement. MEDICATIONS: Includes Synthroid 88 mcg daily, Carafate 1 gram at bedtime, omeprazole 20 daily, Lasix 20 in the evening and 40 in the morning, potassium supplementation 10 mEq b.i.d., tramadol 50 q. 6, Xanax 0.5 b.i.d. p.r.n., lisinopril 10 daily, carvedilol 12.5 b.i.d., atorvastatin 20 daily and Plavix 75 daily. SOCIAL HISTORY: Lives in [facility]. She is a nonsmoker. ALLERGIES: WALTER INHIBITOR, PENICILLIN, CODEINE, SKELAXIN AND MACROBID. REVIEW OF SYSTEMS: The patient reports easy bruising but reports no swollen glands. The patient reports no fever, no night sweats, no significant weight gain, no significant weight loss. No significant exercise tolerance. The patient reports no dry eyes, no irritation, no vision change. Patient reports no difficulty hearing and no ear pain. Patient reports no frequent nose bleeds or nose and sinus problems. Patient reports on arm pain on exertion. No shortness of breath while lying down. No history of heart murmur. Patient reports no cough, no wheezing or coughing up blood. Patient reports no abdominal pain, no vomiting. Normal appetite. No diarrhea and not vomiting blood. No nausea and no constipation. Patient reports no incontinence. No difficulty urinating. No hematuria. No increased frequency. Patient reports no muscle aches. No weakness, no arthralgias, no back pain. No swelling of the extremities. Patient reports no abnormal mole, no jaundice, no rashes. Reports no loss of consciousness. No weakness and no numbness. No seizures, dizziness, or headaches. The patient reports no depression, no sleep disturbance, feeling safe in a relationship and no alcohol abuse. Patient reports on fatigue. Reports no runny nose or sinus pressure. No itching, no hives, and no frequent sneezing. PHYSICAL EXAMINATION: GENERAL: Pleasant female, in no acute distress. VITAL SIGNS: Blood pressure 128/64, pulse is 70 and paced. HEENT: Normocephalic and atraumatic. CONSULT REPORT [id number] KAPLAN,YOCASTA NECK: No JVD or bruit. HEART: Regular, S3 gallop, II-III/ systolic ejection murmur. LUNGS: Fairly good air excursion. ABDOMEN: Soft, nontender. EXTREMITIES: Pulses are preserved, 1+. There is no edema. DIAGNOSTIC DATA: ECG shows ventricular pacing. Cardiac enzymes currently are normal. IMPRESSION: Volume overload, [id number] systolic dysfunction. Chest pain may be related to decreased sats and increased O2 demand. I will add Aldactone to her underlying medical regime. TRANSINT:[id number] Voice Confirmation ID: [id number] DOCUMENT ID: [id number] JUDD GRIFFITHS MD at 1039 CC: [id number] DICTATION DATE: 04/15/17 160 FIREFIGHTER TYPE ONE: 04/16/17 0859 DIS IN 04/16/17 [id number] [place] [address]
== END 2017-04-16 19:05 | disposition home or self-care (01) ==
LOC: D.ER 10:21 → OBSVTIME 14:32 → D.M2 14:32
PROVIDERS: Emergency Medicine; ADMIT Family Medicine
DX: I11.0 Hypertensive heart disease with heart failure (principal); I50.23 Acute on chronic systolic (congestive) heart failure; I48.91 Unspecified atrial fibrillation; I42.9 Cardiomyopathy, unspecified; E03.9 Hypothyroidism, unspecified; Z95.0 Presence of cardiac pacemaker; Z86.73 Personal history of transient ischemic attack (TIA), and cerebral infarction without residual deficits